=== PATIENT | male | born 1990 | race Caucasian/White ===

== ENCOUNTER 2020-03-28 00:44 | Emergency (ER) | payer MEDICAID ==
[2020-03-28] MEDS ORDERED: cefTRIAXone 500 MG Vial IM ONE (02:16)
[2020-03-28] MEDS ORDERED: cefTRIAXone 500 MG, Lidocaine 1% 1 ML IM ONE ×2 (02:23)
--- NOTE | 2020-03-28 02:23 | EDM.PDOC ---
ED HPI GENERAL MEDICAL PROBLEM - General Chief Complaint: Genitourinary Problem Stated Complaint: GROIN PAIN Time Seen by Provider: 03/28/20 02:11 Source of Information: Reports: Patient, RN Notes Reviewed History Limitations: Reports: No Limitations - History of Present Illness INITIAL COMMENTS - FREE TEXT/NARRATIVE: 29-year-old gentleman presents emergency department with a complaint of painful right testicle this is developed over the last 24 hours he does admit to being sexually active thinks he may have injured himself while getting in and out of the pickup. No fevers no difficulty with urination testicle Pain Score (Numeric/FACES): 8 - Related Data Allergies Allergy/AdvReac Type Severity Reaction Status Date / Time No Known Allergies Allergy Verified 03/28/20 01:10 Home Meds: Home Meds NK [No Known Home Meds] 03/28/20 [History] Past Medical History Musculoskeletal History: Reports: Back Pain, Chronic, Other (See Below) Other Musculoskeletal History: Pt was thrown by a bull - Infectious Disease History Infectious Disease History: Reports: Chicken Pox - Past Surgical History Neurological Surgical History: Reports: Scoliosis Social & Family History - Tobacco Use Smoking Status *Q: Current Every Day Smoker Years of Tobacco use: 11 Packs/Tins Daily: 0.5 - Caffeine Use Caffeine Use: Reports: Soda - Recreational Drug Use Recreational Drug Use: No ED ROS GENERAL - Review of Systems Review Of Systems: See Below Constitutional: Reports: No Symptoms : Reports: Other (Painful swollen testicle) ED EXAM, RENAL/ - Physical Exam Exam: See Below Text/Narrative:: Examination of testicles the right testicle is slightly enlarged and erythematous he does not get pain relief with elevation of the scrotal sac Exam Limited By: No Limitations General Appearance: Alert, WD/WN, No Apparent Distress Course - Vital Signs Last Recorded V/S: Last Vital Signs Temp 98.2 F 03/28/20 01:11 Pulse 97 03/28/20 01:11 Resp 15 03/28/20 01:11 BP 125/86 03/28/20 01:11 Pulse Ox 98 03/28/20 01:11 - Orders/Labs/Meds Orders: Active Orders 24 hr Category Date Time Status Testicular US [Scrotum and Contents] [US] Stat Exams 03/28/20 01:16 Taken cefTRIAXone [Rocephin] Med 03/28/20 02:16 Once 500 mg IM ONETIME ONE Medication Orders Ceftriaxone Sodium (Rocephin) 500 mg IM ONETIME ONE Stop: 03/28/20 02:17 Meds: Medications Generic Name Dose Route Start Last Admin Trade Name Niraj PRN Reason Stop Dose Admin Ceftriaxone Sodium 500 mg 03/28/20 02:16 Rocephin IM 03/28/20 02:17 ONETIME ONE Departure - Departure Time of Disposition: 02:22 Disposition: Home, Self-Care 01 Condition: Fair Clinical Impression: Epididymitis, right - Discharge Information Instructions: Epididymitis Referrals: PCP,None [Primary Care Provider] - Additional Instructions: Take full course of antibiotics, use ibuprofen as needed for baseline pain control use hydrocodone for breakthrough pain, please follow-up with your primary care provider in the next 3 to 5 days for further evaluation call return to the emergency department worsening of symptoms Sepsis Event Note (ED) - Evaluation Sepsis Screening Result: No Definite Risk - Focused Exam Vital Signs: Vital Signs Temp Pulse Resp BP Pulse Ox 03/28/20 01:11 98.2 F 97 15 125/86 98 03/28/20 01:10 98.2 F 97 15 125/86 98 - My Orders Last 24 Hours: My Active Orders 03/28/20 01:16 Testicular US [Scrotum and Contents] [US] Stat 03/28/20 02:16 cefTRIAXone [Rocephin] 500 mg IM ONETIME ONE - Assessment/Plan Last 24 Hours: My Active Orders 03/28/20 01:16 Testicular US [Scrotum and Contents] [US] Stat 03/28/20 02:16 cefTRIAXone [Rocephin] 500 mg IM ONETIME ONE Plan: Assessment Acuity = acute Site and laterality = epididymitis Etiology = unknown possibly sexually active related Manifestations = none Location of injury = Home Lab values = ultrasound reveals epididymitis Plan Elect to treat empirically Rocephin 250 mg IM x1 in combination doxycycline 100 mg p.o. twice daily x10 days hydrocodone 5/325 1 tab p.o. 3 times daily PRN total #10 provided for pain control he will follow-up with his primary care in the next 3 to 5 days if no improvement This note was dictated using [employer] voice recognition software please call with any questions on syntax or grammar.
--- NOTE | 2020-03-28 02:26 | CRLUS ---
INDICATION: Swollen right testicle TECHNIQUE: Ultrasound scrotum and contents. Real-time hilliard scale sonographic images with spectral and color Doppler imaging of the testicles were obtained. COMPARISON: None FINDINGS: Right testis: 3.8 x 2.8 x 2.8 cm. The right testis is appearance and echotexture. Normal arterial and venous blood flow seen in the right testis. Left testis: 3.4 x 22.8 cm. The left testis is appearance and echotexture. Normal arterial and venous blood flow seen in the left testis. Epididymis: The epididymis are unremarkable in size and echogenicity and have normal blood flow. Soft tissue: A small physiologic right hydrocele is noted. No adenopathy is seen. IMPRESSION: 1. Unremarkable scrotal ultrasound. Dictated by Armaan Escobar MD @ 03/28/2020 2:24:45 AM Dictated by: Armaan Escobar MD @ 03/28/2020 02:24:48 (Electronically Signed)
== END 2020-03-28 02:38 | disposition home or self-care (01) ==
LOC: JP.ED 00:44
DX: N45.1 Epididymitis (principal); F17.210 Nicotine dependence, cigarettes, uncomplicated
CPT/HCPCS: 76870; 96372; 99284; J0696; J2001